=== PATIENT | female | born 1980 | race African-American/Black ===

== ENCOUNTER 2021-12-21 20:29 | Emergency (ER) | payer MEDICAID, OTHER ==
[~2021-12-21] VITALS: Ht 172.7 cm; Wt 48.0 kg
[2021-12-21 20:53] VITALS: BP 144/96
[2021-12-21] MEDS ORDERED: HYDROCODONE/ACETAMINOPHEN 5/325MG TABLET PO ONE (22:45)
== END 2021-12-21 23:45 | disposition home or self-care (01) ==
LOC: ER 20:29
DX: U07.1 COVID-19 (principal); R51.9 Headache, unspecified
CPT/HCPCS: 99283